=== PATIENT | female | born 1985 | race Caucasian/White ===

== ENCOUNTER 2020-01-09 00:25 | Emergency (ER) | payer BC ==
[2020-01-09 00:36] VITALS: TEMP 98.2
[2020-01-09] MEDS ORDERED: SODIUM CHLORIDE 0.9% 500 ML 500 ML IV STA (01:01)
--- NOTE | 2020-01-09 01:09 | ED ---
Overdose HPI - General Chief Complaint: Overdose Stated Complaint: Overdose Time Seen by Provider: 01/09/20 00:41 Source: patient, family Mode of arrival: ambulatory Limitations: no limitations - History of Present Illness Initial Comments: This patient is a 34-year-old woman who presents to be evaluated after she had taken an overdose of medications tonight. Patient states that she had been drinking and then felt somewhat depressed so she took a combination of old prescriptions that she had. The patient took a combination of naproxen, Putnam 5 mg, and Tylenol 3. She is not sure exactly how many tablets remaining in each of the bottles which were approximately 2 years old. This was at approximately 11 PM. Patient states she subsequently felt better this and talked with family and they brought her here for evaluation. Patient denies any gastrointestinal symptoms. MD Complaint: accidental overdose Onset/Timin -: hour(s) How Overdose Was Discovered: called family/friend Context: Accidental Overdose: was drinking then took pills Associated Symptoms: depression Treatments Prior to Arrival: none - Related Data Allergies Allergy/AdvReac Type Severity Reaction Status Date / Time doxycycline Allergy Rash/Hives Verified 01/09/20 00:36 Review of Systems ROS Statement: Those systems with pertinent positive or pertinent negative responses have been documented in the HPI. ROS Other: All systems not noted in ROS Statement are negative. Constitutional: Denies: fever Respiratory: Denies: cough, dyspnea Cardiovascular: Denies: chest pain, palpitations, edema, syncope Gastrointestinal: Denies: abdominal pain, nausea, vomiting Genitourinary: Denies: dysuria, hematuria Musculoskeletal: Denies: back pain Skin: Denies: rash Neurological: Denies: headache Psychiatric: Reports: depression, suicidal thoughts. Denies: auditory hallucinations, visual hallucinations, homicidal thoughts Past Medical History Past Medical History: Syncope Additional Past Medical History / Comment(s): acid reflux History of Any Multi-Drug Resistant Organisms: None Reported Past Surgical History: Breast Surgery, Orthopedic Surgery, Tonsillectomy Past Psychological History: No Psychological Hx Reported Smoking Status: Never smoker Past Alcohol Use History: Occasional Past Drug Use History: None Reported General Exam Limitations: no limitations General appearance: alert, in no apparent distress Head exam: Present: atraumatic, normocephalic Eye exam: Present: normal appearance. Absent: scleral icterus, conjunctival injection ENT exam: Present: normal oropharynx Neck exam: Present: normal inspection Respiratory exam: Present: normal lung sounds bilaterally. Absent: respiratory distress, wheezes, rales, rhonchi, stridor Cardiovascular Exam: Present: regular rate, normal rhythm, normal heart sounds. Absent: systolic murmur, diastolic murmur, rubs, gallop GI/Abdominal exam: Present: soft, normal bowel sounds. Absent: distended, tenderness, guarding, rebound, rigid, mass Extremities exam: Present: normal inspection, normal capillary refill. Absent: pedal edema, calf tenderness Back exam: Present: normal inspection. Absent: CVA tenderness (R), CVA tenderness (L) Neurological exam: Present: alert Skin exam: Present: warm, dry, intact, normal color. Absent: rash Course Vital Signs 01/09/20 01/09/20 01/09/20 00:30 00:49 00:50 Temperature 98.2 F Pulse Rate 93 116 H 124 H Respiratory 18 29 H 23 Rate Blood Pressure 138/75 O2 Sat by Pulse 100 Oximetry 01/09/20 01/09/20 01/09/20 00:54 01:00 01:10 Temperature Pulse Rate 92 102 H 93 Respiratory 18 14 19 Rate Blood Pressure 125/75 125/75 125/75 O2 Sat by Pulse 96 97 95 Oximetry 01/09/20 01/09/20 01/09/20 01:20 01:30 01:40 Temperature Pulse Rate 107 H 104 H 112 H Respiratory 17 11 L 8 L Rate Blood Pressure 125/75 125/75 125/75 O2 Sat by Pulse 99 98 96 Oximetry 01/09/20 01/09/20 01/09/20 01:50 02:00 02:10 Temperature Pulse Rate 107 H 90 66 Respiratory 12 9 L 8 L Rate Blood Pressure 112/64 112/64 112/64 O2 Sat by Pulse 99 95 93 L Oximetry 01/09/20 01/09/20 01/09/20 02:20 02:30 02:40 Temperature Pulse Rate 83 64 85 Respiratory 11 L 12 14 Rate Blood Pressure 112/64 112/64 112/64 O2 Sat by Pulse 84 L 93 L 95 Oximetry 01/09/20 01/09/20 01/09/20 02:50 03:00 03:14 Temperature Pulse Rate 98 65 62 Respiratory 37 H 7 L 12 Rate Blood Pressure 112/64 112/64 112/64 O2 Sat by Pulse 97 98 98 Oximetry 01/09/20 01/09/20 01/09/20 03:20 03:30 03:40 Temperature Pulse Rate 62 71 70 Respiratory 11 L 10 L 11 L Rate Blood Pressure 112/64 112/64 112/64 O2 Sat by Pulse 100 100 100 Oximetry 01/09/20 01/09/20 01/09/20 03:50 04:00 04:10 Temperature Pulse Rate 79 71 82 Respiratory 15 9 L 11 L Rate Blood Pressure 112/64 112/64 112/64 O2 Sat by Pulse 100 99 100 Oximetry 01/09/20 01/09/20 01/09/20 04:20 04:30 04:40 Temperature Pulse Rate 93 111 H 71 Respiratory 17 11 L 10 L Rate Blood Pressure 112/64 112/64 O2 Sat by Pulse 100 100 97 Oximetry 01/09/20 01/09/20 04:50 05:00 Temperature Pulse Rate 85 96 Respiratory 17 18 Rate Blood Pressure 112/64 107/68 O2 Sat by Pulse 97 97 Oximetry Medical Decision Making - Lab Data Result diagrams: 01/09/20 01:15 01/09/20 01:15 Lab Results 01/09/20 01/09/20 01/09/20 Range/Units 01:15 01:15 01:40 WBC 9.2 (3.8-10.6) k/uL RBC 4.41 (3.80-5.40) m/uL Hgb 13.4 (11.4-16.0) gm/dL Hct 43.0 (34.0-46.0) % MCV 97.7 (80.0-100.0) fL MCH 30.5 (25.0-35.0) pg MCHC 31.2 (31.0-37.0) g/dL RDW 12.4 (11.5-15.5) % Plt Count 268 (150-450) k/uL Neutrophils % 69 % Lymphocytes % 22 % Monocytes % 7 % Eosinophils % 0 % Basophils % 0 % Neutrophils # 6.3 (1.3-7.7) k/uL Lymphocytes # 2.0 (1.0-4.8) k/uL Monocytes # 0.7 (0-1.0) k/uL Eosinophils # 0.0 (0-0.7) k/uL Basophils # 0.0 (0-0.2) k/uL Sodium 137 (137-145) mmol/L Potassium 4.0 (3.5-5.1) mmol/L Chloride 104 (98-107) mmol/L Carbon Dioxide 21 L (22-30) mmol/L Anion Gap 12 mmol/L BUN 8 (7-17) mg/dL Creatinine 0.56 (0.52-1.04) mg/dL Est GFR (CKD-EPI)AfAm >90 (>60 ml/min/1.73 sqM) Est GFR (CKD-EPI)NonAf >90 (>60 ml/min/1.73 sqM) Glucose 93 (74-99) mg/dL Calcium 9.5 (8.4-10.2) mg/dL Total Bilirubin 1.5 H (0.2-1.3) mg/dL AST 21 (14-36) U/L ALT 14 (4-34) U/L Alkaline Phosphatase 78 (38-126) U/L Total Protein 8.0 (6.3-8.2) g/dL Albumin 4.6 (3.5-5.0) g/dL Urine HCG, Qual Not Detected (Not Detectd) Salicylates 1.1 mg/dL Urine Opiates Screen (NotDetected) Ur Oxycodone Screen (NotDetected) Urine Methadone Screen (NotDetected) Ur Propoxyphene Screen (NotDetected) Acetaminophen 95.8 H* ug/mL Ur Barbiturates Screen (NotDetected) U Tricyclic Antidepress (NotDetected) Ur Phencyclidine Scrn (NotDetected) Ur Amphetamines Screen (NotDetected) U Methamphetamines Scrn (NotDetected) U Benzodiazepines Scrn (NotDetected) Urine Cocaine Screen (NotDetected) U Marijuana (THC) Screen (NotDetected) Serum Alcohol 53 mg/dL 01/09/20 01/09/20 Range/Units 01:40 03:15 WBC (3.8-10.6) k/uL RBC (3.80-5.40) m/uL Hgb (11.4-16.0) gm/dL Hct (34.0-46.0) % MCV (80.0-100.0) fL MCH (25.0-35.0) pg MCHC (31.0-37.0) g/dL RDW (11.5-15.5) % Plt Count (150-450) k/uL Neutrophils % % Lymphocytes % % Monocytes % % Eosinophils % % Basophils % % Neutrophils # (1.3-7.7) k/uL Lymphocytes # (1.0-4.8) k/uL Monocytes # (0-1.0) k/uL Eosinophils # (0-0.7) k/uL Basophils # (0-0.2) k/uL Sodium (137-145) mmol/L Potassium (3.5-5.1) mmol/L Chloride (98-107) mmol/L Carbon Dioxide (22-30) mmol/L Anion Gap mmol/L BUN (7-17) mg/dL Creatinine (0.52-1.04) mg/dL Est GFR (CKD-EPI)AfAm (>60 ml/min/1.73 sqM) Est GFR (CKD-EPI)NonAf (>60 ml/min/1.73 sqM) Glucose (74-99) mg/dL Calcium (8.4-10.2) mg/dL Total Bilirubin (0.2-1.3) mg/dL AST (14-36) U/L ALT (4-34) U/L Alkaline Phosphatase (38-126) U/L Total Protein (6.3-8.2) g/dL Albumin (3.5-5.0) g/dL Urine HCG, Qual (Not Detectd) Salicylates mg/dL Urine Opiates Screen Detected H (NotDetected) Ur Oxycodone Screen Not Detected (NotDetected) Urine Methadone Screen Not Detected (NotDetected) Ur Propoxyphene Screen Not Detected (NotDetected) Acetaminophen 86.4 H* ug/mL Ur Barbiturates Screen Not Detected (NotDetected) U Tricyclic Antidepress Not Detected (NotDetected) Ur Phencyclidine Scrn Detected H (NotDetected) Ur Amphetamines Screen Not Detected (NotDetected) U Methamphetamines Scrn Not Detected (NotDetected) U Benzodiazepines Scrn Not Detected (NotDetected) Urine Cocaine Screen Not Detected (NotDetected) U Marijuana (THC) Screen Not Detected (NotDetected) Serum Alcohol mg/dL - EKG Data -: EKG Interpreted by Me EKG shows normal: sinus rhythm, axis (Normal), intervals (Normal), QRS complexes (Normal), ST-T waves (Normal) Rate: normal (Rate 78 bpm) Interpretation: normal EKG Disposition Clinical Impression: Overdose by acetaminophen Disposition: HOME SELF-CARE Condition: Good Instructions (If sedation given, give patient instructions): Adult Overdose (ED) Is patient prescribed a controlled substance at d/c from ED?: No Referrals: None,Stated [Primary Care Provider] - 1-2 days
[2020-01-09 01:42] LABS: ALT 14 U/L (4-34); AST 21 U/L (14-36); African American GFR (CKD) >90 (>60 ml/min/1.73 sqM); Albumin 4.6 g/dL (3.5-5.0); Alcohol 53 mg/dL; Alkaline Phosphatase 78 U/L (38-126); Anion Gap 12 mmol/L; Blood Urea Nitrogen 8 mg/dL (7-17); Calcium 9.5 mg/dL (8.4-10.2); Carbon Dioxide 21 mmol/L (22-30); Chloride 104 mmol/L (98-107); Glucose 93 mg/dL (74-99); Non-African American GFR(CKD) >90 (>60 ml/min/1.73 sqM); Salicylate 1.1 mg/dL; Sodium 137 mmol/L (137-145); Total Bilirubin 1.5 mg/dL (0.2-1.3)
[2020-01-09 01:50] LABS: Acetaminophen 95.8 ug/mL; Basophils % (A) 0 %; Eosinophils % (A) 0 %; HGB 13.4 gm/dL (11.4-16.0); Lymphocytes % (A) 22 %; MCH 30.5 pg (25.0-35.0); MCHC 31.2 g/dL (31.0-37.0); MCV 97.7 fL (80.0-100.0); Mean Platelet Volume 8.1; Monocytes # (A) 0.7 k/uL (0-1.0); Monocytes % (A) 7 %; Neutrophils # (A) 6.3 k/uL (1.3-7.7); Neutrophils % (A) 69 %; Platelet Count 268 k/uL (150-450); RBC 4.41 m/uL (3.80-5.40); RDW 12.4 % (11.5-15.5); WBC 9.2 k/uL (3.8-10.6)
[2020-01-09 02:15] LABS: Amphetamine Screen,Urine Not Detected (NotDetected); Barbiturate Screen,Urine Not Detected (NotDetected); Benzodiazepines Screen,Urine Not Detected (NotDetected); Cocaine Screen,Urine Not Detected (NotDetected); Methadone Screen, Urine Not Detected (NotDetected); Opiate Screen,Urine Detected (NotDetected); Oxycodone Screen, Urine Not Detected (NotDetected); Phencyclidine Screen,Urine Detected (NotDetected); Tricyclic Antidepressant,Urine Not Detected (NotDetected); Urn Cannabinoid Scrn Not Detected (NotDetected)
[2020-01-09 05:05] VITALS: BP 107/68
[2020-01-09 05:33] VITALS: PULSE 90; RESP 10
== END 2020-01-09 05:40 | disposition home or self-care (01) ==
LOC: EC 00:25
DX: T39.1X1A Poisoning by 4-Aminophenol derivatives, accidental (unintentional), initial encounter (principal); Z88.1 Allergy status to other antibiotic agents
CPT/HCPCS: 36415; 80053; 80306; 80320; 80329; 81025; 82075; 83520; 85025; 93005; 96360; 99284

== ENCOUNTER → 2022-12-01 | Outpatient (CLI) | payer MEDICAID ==
--- NOTE | 2022-12-01 15:17 | MR ---
EXAMINATION TYPE: MR lumbar spine wo con DATE OF EXAM: 12/01/2022 COMPARISON: NONE HISTORY: Lower back pain, radiates into buttocks. TECHNIQUE: Multiplanar, multisequence imaging of the lumbar spine is performed without IV contrast. FINDINGS: Sagittal images of the lumbar spine show vertebral body heights and alignment to appear sat isfactory. The intervertebral discs demonstrate normal heights and hydration. The conus medullaris i s normal in position and signal ending at L1 level. The bone marrow signal intensity is within jed l limits. Axial images show T12-L1 through L2-L3 level to appear within normal limits. Axial images at L3-L4 level show mild broad disc bulge minimally effacing the anterior thecal sac. Pa tent bilateral neural foramina. Axial images at L4-L5 and L5-S1 levels show mild facet arthropathy bilaterally. Spinal canal is prese rved. Bilateral neural foramina are patent. Paraspinal muscle bulk is maintained. Anteverted uterus is incidentally noted. IMPRESSION: Mild degenerative changes in the mid to lower lumbar spine as detailed above. No suspicio us large disc herniation is seen.
== END | disposition home or self-care (01) ==
LOC: RADMRIMAIN 12:24
PROVIDERS: ATTEND Physical Medicine & Rehabilitation
DX: M47.27 Other spondylosis with radiculopathy, lumbosacral region (principal); M51.16 Intervertebral disc disorders with radiculopathy, lumbar region
CPT/HCPCS: 72148

== ENCOUNTER 2023-03-06 07:31 | Day surgery (SDC) | payer MEDICAID ==
[2023-03-02 13:25] VITALS: BMI 25.3
[~2023-03-06 07:31] MED LIST: ACETAMINOPHEN TAB 500 MG TAB PO PRN; DEXAMETHASONE SOD PHOSPHATE 4 MG/ML 1 ML VIAL IV ONE; HEPARIN SODIUM,PORCINE/PF 5,000 UNIT/0.5 ML SYRINGE SQ PRN; HYDROmorphone 0.5 MG/0.5 ML SYRINGE IVP PRN; LACTATED RINGERS 1,000 ML IV SCH; LIDOCAINE 1% (10MG/ML) FOR IV START INTRADERMA PRN; ONDANSETRON 4 MG/2 ML VIAL IVP ONE; droPERidol 5 MG/2 ML VIAL IVP ONE
[2023-03-06 07:56] VITALS: TEMP 97.4
--- NOTE | 2023-03-06 07:58 | P.GSHP ---
History of Present Illness H&P Date: 03/06/23 Chief Complaint: Chronic cholecystitis 37-year-old female here today for upper scopic cholecystectomy. Patient has been having complaints of intermittent nausea vomiting and abdominal pain. Sound shows gallbladder sludge. She is been seen by GI. The patient felt be suffering from chronic cholecystitis. Past Medical History Past Medical History: GERD/Reflux, Syncope Additional Past Medical History / Comment(s): N/V, dilated bile duct and sludge in gallbladder,abdominal pain,has nexplanon implant left arm History of Any Multi-Drug Resistant Organisms: None Reported Past Surgical History: Breast Surgery, Orthopedic Surgery, Tonsillectomy Additional Past Surgical History / Comment(s): augmentation/implants to breasts Past Anesthesia/Blood Transfusion Reactions: No Reported Reaction Additional Past Anesthesia/Blood Transfusion Reaction / Comment(s): no hx blood transfusion Smoking Status: Never smoker - Past Family History Mother Family Medical History: No Reported History Father Additional Family Medical History / Comment(s): paternal grandfather colon/stomach CA Medications and Allergies Home Medications Medication Instructions Recorded Confirmed Type Ibuprofen [Motrin] 600 mg PO Q6HR PRN 03/02/23 03/06/23 History Multivitamins, Thera [Multivitamin 1 tab PO DAILY 03/02/23 03/06/23 History (formulary)] Omeprazole 40 mg PO QAM 03/02/23 03/06/23 History Allergies Allergy/AdvReac Type Severity Reaction Status Date / Time doxycycline Allergy Rash/Hives Verified 03/06/23 07:50 Surgical - Exam Vital Signs Temp Pulse BP Pulse Ox 97.4 F L 65 124/65 99 03/06/23 07:53 03/06/23 07:53 03/06/23 07:53 03/06/23 07:53 Physical exam: General: Well-developed, well-nourished HEENT: Normocephalic, sclerae nonicteric Abdomen: Nontender, nondistended Extremities: No edema Neuro: Alert and oriented Assessment and Plan (1) Chronic cholecystitis Narrative/Plan: 37-year-old female with chronic cholecystitis. We'll proceed with laparoscopic, possible open cholecystectomy at this time. Risks of bleeding, infection, bile leak, bile duct injury, retained common bile duct stone, trocar injury, conversion to an open procedure, hernia, anesthesia related complications were reviewed. The patient understands and wishes to proceed. Current Visit: Yes Status: Acute Code(s): K81.1 - CHRONIC CHOLECYSTITIS SNOMED Code(s): 26950857
[2023-03-06] MEDS ORDERED: ROCURONIUM 10 MG/ML (5 ML VIAL) IV ONE (08:12)
[2023-03-06] MEDS ORDERED: SUCCINYLCHOLINE CHLORIDE 200 MG/10 ML VIAL IV ONE (08:12)
[2023-03-06] MEDS ORDERED: PROPOFOL 10 MG/ML 20 ML VIAL IV ONE (08:12)
[2023-03-06] MEDS ORDERED: MIDAZOLAM 2 MG/2 ML VIAL ONE (08:12)
[2023-03-06] MEDS ORDERED: GLYCOPYRROLATE 0.2 MG/ML 2 ML VIAL ONE (08:12)
[2023-03-06] MEDS ORDERED: fentaNYL (PF) 50 MCG/ML 2 ML AMP ONE (08:12)
[2023-03-06] MEDS ORDERED: LIDOCAINE 2% INJ 20 MG/ML (2 ML VIAL) ONE (08:12)
[2023-03-06] MEDS ORDERED: NEOSTIGMINE 1 MG/ML 10 ML VIAL ONE (08:12)
[2023-03-06] MEDS ORDERED: PHENYLEPHRINE-0.9% NACL SYG 1,000 MCG/10 ML SYRINGE ONE (08:12)
[2023-03-06] MEDS ORDERED: KETOROLAC 15 MG/ML 1 ML VIAL ONE (08:12)
[2023-03-06] MEDS ORDERED: BUPIVACAINE (PF) 0.25% 30 ML VIAL SQ ONE ×2 (08:37→09:02)
--- NOTE | 2023-03-06 09:11 | P.OP ---
Date of Procedure: 03/06/23 Procedure(s) Performed: PREOPERATIVE DIAGNOSIS: Chronic cholecystitis POSTOPERATIVE DIAGNOSIS: Same PROCEDURE: Laparoscopic cholecystectomy SURGEON: Eryn EBL: Minimal see anesthesia record ANESTHESIA: Gen. COMPLICATIONS: None OPERATIVE PROCEDURE: The patient was brought and placed on the operating room table in the supine position. The patient was placed under general anesthesia at that time. The abdomen was prepped and draped in the usual sterile fashion. A small vertical infraumbilical incision was made. The fascia was grasped with the Edgard forceps. The fascia was retracted anteriorly. The Veress needle was advanced into the peritoneal cavity. The saline drop test was normal. Insufflation took place up to 15 mmHg. A 5 mm optical trocar was advanced and the peritoneal cavity. 2 additional 5 mm trochars were placed in the right upper quadrant under direct visualization. A 12 mm trocar was advanced into the epigastric incision site. The gallbladder was retracted superiorly and laterally. The peritoneum overlying the infundibulum was bluntly dissected. The patient's cystic duct was visualized. The junction between the cystic duct common and hepatic duct was identified. The critical view of safety was achieved after blunt dissection. The cystic duct was then divided after placement of 3 12 mm clips on the patient's side and one on the specimen side. The cystic artery was identified and clipped as well. A small vessel was seen along the gallbladder fossa and clipped as well. The gallbladder was then removed from the liver bed using electrocautery. The gallbladder was then removed from the epigastric trocar site with an Endo Catch bag. The gallbladder fossa was irrigated with saline. There was no evidence of any bleeding or biliary drainage seen. The fascia at the 12 millimeter site was closed using a Crow-Pradeep 0 Vicryl stitch. The trochars were then removed. The skin at all 4 sites was closed using a 4-0 Monocryl stitch. Skin glue was utilized on the incision sites. At the end of this procedure the sponge and needle counts were correct. DISPOSITION: Stable to the recovery room
[2023-03-06] MEDS ORDERED: HYDROmorphone 0.5 MG/0.5 ML SYRINGE IVP ONE (09:35)
[2023-03-06] MEDS ORDERED: LACTATED RINGERS 1,000 ML IV ONE (09:53)
[2023-03-06 10:22] VITALS: RESP 20
[2023-03-06 10:57] VITALS: BP 106/78; PULSE 90
[2023-03-06] MEDS ORDERED: ACETAMINOPHEN TAB 325 MG TAB PO SCH (12:00)
[2023-03-06] MEDS ORDERED: IBUPROFEN 600 MG TAB PO SCH (12:15)
== END 2023-03-06 10:55 | disposition home or self-care (01) ==
LOC: OR 07:31
PROVIDERS: ATTEND Surgery
DX: K81.1 Chronic cholecystitis (principal); K82.8 Other specified diseases of gallbladder; K21.9 Gastro-esophageal reflux disease without esophagitis; K44.9 Diaphragmatic hernia without obstruction or gangrene; Z80.0 Family history of malignant neoplasm of digestive organs; Z79.1 Long term (current) use of non-steroidal anti-inflammatories (NSAID); Z79.899 Other long term (current) drug therapy; Z88.1 Allergy status to other antibiotic agents; Z98.890 Other specified postprocedural states
CPT/HCPCS: 47562; 81025; 88304; J2250; J0330; J1100; J2710; J0690; J2405; J3010; J1885; J2370; J2704; J1170; J1644; J2001

== ENCOUNTER → 2023-07-13 | Outpatient (CLI) | payer MEDICAID ==
[2023-07-13 18:29] LABS: Hepatitis C IgG Antibody Nonreactive
[2023-07-13 19:59] LABS: Mumps Virus IgG Ab Interp Equivocal (Negative); Mumps Virus IgG Antibody 0.9 AI
== END | disposition home or self-care (01) ==
LOC: LABWHC1 10:35
PROVIDERS: ATTEND Family Medicine
DX: Z76.89 Persons encountering health services in other specified circumstances (principal)
CPT/HCPCS: 36415; 86706; 86735; 86762; 86765; 86803

== ENCOUNTER → 2023-11-24 | Day surgery (SDC) | payer MEDICAID ==
[~2023-11-24] MED LIST changes: -ACETAMINOPHEN TAB 500 MG TAB PO PRN; -DEXAMETHASONE SOD PHOSPHATE 4 MG/ML 1 ML VIAL IV ONE; -HEPARIN SODIUM,PORCINE/PF 5,000 UNIT/0.5 ML SYRINGE SQ PRN; -HYDROmorphone 0.5 MG/0.5 ML SYRINGE IVP PRN; +MIDAZOLAM 2 MG/2 ML VIAL ONE; -ONDANSETRON 4 MG/2 ML VIAL IVP ONE; +PHENYLEPHRINE 10 MG/ML VIAL ONE; +PROPOFOL 10 MG/ML 20 ML VIAL IV ONE; +Pre Op ABX Message 1 EACH MISC MISCELLANE ONE; +fentaNYL (PF) 50 MCG/ML 2 ML AMP ONE
[2023-11-24] MEDS: LACTATED RINGERS 1,000 ML IV ONE (09:27)
[2023-11-24] MEDS: ONDANSETRON 4 MG/2 ML VIAL IVP ONE (09:55)
[2023-11-24] MEDS: DEXAMETHASONE SOD PHOSPHATE 4 MG/ML 1 ML VIAL IV ONE (09:55)
[2023-11-24 10:06] VITALS: TEMP 98.6
[2023-11-24] MEDS: BUPIVACAINE (PF) 0.25% 30 ML VIAL SQ ONE ×3 (10:38→10:49)
--- NOTE | 2023-11-24 11:17 | P.OP ---
Date of Procedure: 11/24/23 Preoperative Diagnosis: osteophyte fifth metatarsal left foot Postoperative Diagnosis: same Procedure(s) Performed: partial excision bone fifth metatarsal left foot Implants: none Anesthesia: STEFFANYA Surgeon: Bud Rivera Estimated Blood Loss (ml): 2 Pathology: none sent Condition: stable Disposition: PACU Description of Procedure: The patient brought into the operating room placed on table supine position. Timeout was taken to confirm correct patient identifiers, correct O surgery, correct procedure. Once all staff in the room were in agreement with the timeout, the patient was induced placed under general anesthesia. 50 mL 0.25% Marcaine was injected as a lateral forefoot block. The left foot was prepped and draped usual manner. Utilizing direct fluoroscopic visualization, the osteophyte was identified with a metallic marker. A small skin incision was made on the lateral aspect of the fifth metatarsal in line with the osteophyte. A blunt elevator was used to separate the soft tissue from the plantar surface of the fifth metatarsal at the location the osteophyte. 2.2 mm rotary bur with free-flowing irrigation was inserted and used to completely reduce the osteophyte. A rasp was used to smooth any roughened edges. Fluoroscopy showed that it was completely reduced. And on palpation there was no longer a prominence on the lateral side of the fifth metatarsal. The wound is thoroughly irrigated with anatomic saline. The incision was closed with 3-0 nylon. Nonadherent gauze and a dry sterile dressing applied left foot. The patient tolerated above procedure and anesthesia well which recovery vital signs stable
[2023-11-24] MEDS: HYDROmorphone 0.5 MG/0.5 ML SYRINGE IVP PRN (11:24)
[2023-11-24 11:46] VITALS: RESP 16
[2023-11-24 12:55] VITALS: BP 112/77; PULSE 87
== END | disposition home or self-care (01) ==
LOC: OR 08:59
PROVIDERS: ATTEND Podiatrist
DX: M25.775 Osteophyte, left foot (principal); K21.9 Gastro-esophageal reflux disease without esophagitis; Z88.1 Allergy status to other antibiotic agents; Z79.899 Other long term (current) drug therapy; Z90.49 Acquired absence of other specified parts of digestive tract
CPT/HCPCS: 81025; 28110; J2250; J1100; J2405; J3010; J2704; J1170; J2371; J0665

== ENCOUNTER → 2024-02-05 | Outpatient (CLI) | payer MEDICAID, OTHER | END | disposition home or self-care (01) | LOC: LABWHC1 16:03 | PROVIDERS: ATTEND Family Medicine | DX: R71.8 Other abnormality of red blood cells (principal) | CPT/HCPCS: 36415; 82607; 82746; 84425 ==

== ENCOUNTER → 2024-05-06 | Outpatient (CLI) | payer OTHER ==
--- NOTE | 2024-05-30 12:11 | MR ---
Patient: Margy Keys Ordering Physician: Unknown, Unknown ID: [id number] Phone, Pager: Phone : N/A Pager: N/A : [phone] Age/Gender: 38Y, F Primary Location: N/A Procedure: MR Right shoulder wo con Study Date: 05/06/2024 8:12:27 AM Order #: N/[id number] EXAMINATION TYPE: MR shoulder RT wo con DATE OF EXAM: 05/16/2024 COMPARISON: NONE HISTORY: Right shoulder strain TECHNIQUE: Multiplanar, multisequence imaging of the right shoulder is performed without contrast. FINDINGS: Rotator Cuff: Intact supraspinatus and infraspinatus tendons. Intact subscapularis tendon. Rotator cu ff muscle bulk preserved. Acromioclavicular Joint: Mild narrowing and capsular hypertrophy. Underlying fat plane maintained. Glenohumeral Joint: No significant spurring or joint effusion. Labrum: The labrum appears grossly intact given limitation of non-arthrogram study. Biceps Tendon: The long head of biceps is in normal location within bicipital groove. Bone marrow signal: No focal abnormal marrow signal is appreciated. Other: No additional significant abnormality is appreciated. IMPRESSION: No rotator cuff or labral tear is seen.
== END | disposition home or self-care (01) ==
LOC: RADMRIMAIN 09:00
PROVIDERS: ATTEND Emergency Medicine
DX: S46.911D Strain of unspecified muscle, fascia and tendon at shoulder and upper arm level, right arm, subsequent encounter (principal)

== ENCOUNTER 2024-06-07 06:12 | Day surgery (SDC) | payer MEDICAID ==
[~2024-06-07 06:12] MED LIST changes: -LACTATED RINGERS 1,000 ML IV SCH; -LIDOCAINE 1% (10MG/ML) FOR IV START INTRADERMA PRN; -MIDAZOLAM 2 MG/2 ML VIAL ONE; -PHENYLEPHRINE 10 MG/ML VIAL ONE; -PROPOFOL 10 MG/ML 20 ML VIAL IV ONE; +SCOPOLAMINE 1 MG/72 HR PATCH TRANSDERM ONE; -droPERidol 5 MG/2 ML VIAL IVP ONE; -fentaNYL (PF) 50 MCG/ML 2 ML AMP ONE
[2024-06-07] MEDS ORDERED: MIDAZOLAM 2 MG/2 ML VIAL IV PRN (07:00)
[2024-06-07] MEDS ORDERED: HYDROmorphone 0.5 MG/0.5 ML SYRINGE IVP PRN (07:00)
[2024-06-07] MEDS: LACTATED RINGERS 1,000 ML IV SCH (07:01)
[2024-06-07] MEDS: ONDANSETRON 4 MG/2 ML VIAL IVP ONE (07:03)
[2024-06-07] MEDS: DEXAMETHASONE SOD PHOSPHATE 4 MG/ML 1 ML VIAL IV ONE (07:03)
[2024-06-07] MEDS ORDERED: MIDAZOLAM 2 MG/2 ML VIAL ONE (07:25)
[2024-06-07] MEDS ORDERED: PROPOFOL 10 MG/ML 20 ML VIAL IV ONE (07:25)
[2024-06-07] MEDS ORDERED: fentaNYL (PF) 50 MCG/ML 2 ML AMP ONE (07:25)
[2024-06-07] MEDS ORDERED: LIDOCAINE 1% INJ 10MG/ML (20 ML MDV) ONE (07:25)
[2024-06-07] MEDS ORDERED: PHENYLEPHRINE 10 MG/ML VIAL ONE (07:25)
[2024-06-07] MEDS: BUPIVACAINE (PF) 0.25% 30 ML VIAL SQ ONE (07:41)
[2024-06-07] MEDS: ceFAZolin 1,000 MG in SODIUM CHLORIDE 0.9% 1,000 ML IRRIGATION ONE (07:49)
--- NOTE | 2024-06-07 08:15 | P.OP ---
Date of Procedure: 06/07/24 Preoperative Diagnosis: 1. Exostosis fifth metatarsal left foot 2. Bursa left foot Postoperative Diagnosis: 1. Same 2. Same Procedure(s) Performed: 1. Partial excision of bone left fifth metatarsal 2. Excision of bursa left foot Implants: none Anesthesia: STEFFANYA Surgeon: Bud Rivera Estimated Blood Loss (ml): 0 Pathology: none sent Condition: stable Disposition: PACU Description of Procedure: The patient was brought into the operating room and placed on table in the supine position. Timeout was taken to confirm correct patient identifiers, correct laterality of surgery, and correct procedure. Once staff in the room were in agreement with the timeout, the patient was induced and placed under general anesthesia. A well-padded tourniquet was placed the left ankle and then 10 mL of 0.25% Marcaine was injected in the forefoot proximal to the fifth metatarsal phalangeal joint. The left foot was prepped and draped in the usual manner. The foot was exsanguinated and the tourniquet inflated to 250 mmHg. Attention was directed over the lateral aspect of the fifth metatarsal, where there was a small focal area of hyperkeratotic tissue. 2 semi-elliptical converging incisions were made around this area. The total length of the incision was approximately 1 cm. The incision was taken down to the subcutaneous layer only the interposing piece of skin was removed. It was noted that the central hyperkeratotic lesion extended into the deep subcutaneous tissue is a firm nodule. This was all sharply excised removed. There is also bursal tissue deep to this area that was also sharply excised and removed. An elevator was used to remove soft tissue from the plantar surface of the fifth metatarsal where the exostosis was present. The soft tissues were carefully protected and a 2.2 mm bur was used to remove the exostosis. Fluoroscopy confirmed the removal of the exostosis. The wound is thoroughly irrigated with antibiotic saline. The incision was closed with 3-0 nylon. Nonadherent gauze and a dry sterile dressing were applied the left foot. The tourniquet was released and capillary refill return to all digits on the left foot. Anesthesia was reversed and the patient was taken recovery with vital signs stable
[2024-06-07] MEDS: KETOROLAC 15 MG/ML 1 ML VIAL IVP STA (08:16)
[2024-06-07 08:30] VITALS: TEMP 98.2
[2024-06-07 08:40] VITALS: RESP 16
[2024-06-07 09:15] VITALS: BP 115/75; PULSE 63
== END 2024-06-07 09:38 | disposition home or self-care (01) ==
LOC: OR 06:12
PROVIDERS: ATTEND Podiatrist
CPT/HCPCS: 81025

== ENCOUNTER → 2024-10-11 | Outpatient (CLI) | payer MEDICAID, OTHER ==
--- NOTE | 2024-10-11 17:13 | FL ---
EXAMINATION TYPE: FL arthrogram shoulder RT fluoroscopic-guided arthrogram injection. DATE OF EXAM: 10/11/2024 4:01 PM COMPARISON: Correlation MRI 05/06/2024 and radiograph 05/31/2024. CLINICAL INDICATION: Female, 39 years old with history of M25.511 F43.431A, persistent anterior pain after injury moving patient. PROCEDURES: 1. Right shoulder fluoroscopy. 2. Right shoulder arthrogram. Total fluoroscopy time: 14 seconds. Total images: 1. Total dose: 25 mGycm2. TECHNIQUE: The procedure, risks, and alternatives, were discussed with the patient, who requested that tanmay bailey. The consent form was signed, and teach-back occurred. The site/side of the procedure was marked with a line with participation by the patient. The accompan meeta paperwork was verified for consistency. A critical pause was performed with assisting personnel just prior to the procedure, and the patient' s identity was confirmed using 2 identifiers. Imaging guidance was utilized to select the precise skin entry point just prior to the procedure. The anterior right shoulder was prepped and draped in the usual sterile fashion and local 1% lidocain e anesthesia was instilled. Under fluoroscopic guidance, a 20 gauge spinal needle was introduced int o the right glenohumeral joint. Appropriate needle tip position was confirmed after a small amount of contrast injection. Approximately 12 ml of a mixture of sterile saline, Isovue-300 iodinated contrast, and Gadavist was i njected into the glenohumeral joint. The needle was then removed. The patient tolerated the procedure well. There was no immediate complication. After the procedure, the patient's condition was unchanged. Estimated blood loss was minimal. IMPRESSION: Technically successful right shoulder arthrogram injection for MRI. No immediate complication. [facility], , 10/11/2024 5:11 PM
--- NOTE | 2024-10-12 08:17 | MR ---
EXAMINATION TYPE: MR shoulder RT w con DATE OF EXAM: 10/11/2024 4:21 PM COMPARISON: 05/06/2024 CLINICAL INDICATION: Female, 39 years old with history of M25.511 F43.431A, Right shoulder pain, labr al tear IV Contrast: .035 cc Gadavist (None if empty) TECHNIQUE: Multiplanar, multisequence images of the right shoulder is performed without and with .035 mL intravenous Gadavist gadolinium contrast. FINDINGS: There is a humeral avulsion of the inferior glenohumeral ligament (HAGL lesion.) There is a large glenohumeral joint effusion. The tendons of the rotator cuff are intact. There is no subacromial or subdeltoid bursa. The biceps t endon is normal in signal intensity and position within the bicipital groove and the superior cartila ginous labrum is intact. There is no bone contusion or fracture. There is minimal osteoarthritic change of the AC joint. IMPRESSION: 1. Humeral avulsion of the inferior glenohumeral ligament, HAGL lesion. 2. No rotator cuff injury. 3. Large glenohumeral joint effusion. [facility], , 10/12/2024 8:15 AM
== END | disposition home or self-care (01) ==
LOC: RADFLMAIN 12:50
PROVIDERS: ATTEND Orthopaedic Surgery
DX: M25.511 Pain in right shoulder (principal)
CPT/HCPCS: 23350; 73040; 73222; A9585; Q9967

== ENCOUNTER 2025-03-06 02:35 | Emergency (ER) | payer MEDICAID ==
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
[2025-03-06] MEDS: ACETAMINOPHEN TAB 500 MG TAB PO STA (03:54)
[2025-03-06] MEDS: KETOROLAC 15 MG/ML 1 ML VIAL IM STA (03:55)
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
[2025-03-06 05:08] VITALS: BP 104/73; PULSE 91; RESP 18; TEMP 97.9
== END 2025-03-06 05:08 | disposition home or self-care (01) ==
LOC: EC 02:35
DX: S02.609A Fracture of mandible, unspecified, initial encounter for closed fracture (principal); Z88.8 Allergy status to other drugs, medicaments and biological substances; X58.XXXA Exposure to other specified factors, initial encounter; Y04.0XXA Assault by unarmed brawl or fight, initial encounter
CPT/HCPCS: 70486; 99284; 96372; J1885